=== PATIENT | male | born 1965 | race Caucasian/White ===

== ENCOUNTER 2016-08-17 00:06 | Emergency (ER) | payer BC, OTHER ==
[2016-08-17 00:12] VITALS: BP 101/75; PULSE 90; RESP 15; TEMP 97.7; O2SAT 94
[2016-08-17] MEDS ORDERED: HYDROCOD/APAP 5/325 PREPACK#6 BTL TAKEHOME ONE (00:30)
--- NOTE | 2016-08-17 00:30 | EDPHY ---
H & P Stated Complaint: possible shingles, pain in mid back and RUE, no skin issues Time Seen by Provider: 08/17/16 00:18 HPI/ROS: HPI The patient presents with 5 days of intermittent right-sided thoracic back pain which became constant tonight, it is sharp in nature and radiates throughout his mid back. It is worse with changes in position and when he lies directly on at. This feels identical to when he had varicella zoster in the same region 3 years ago. He has not noticed any rash yet. He woke tonight because the pain was severe. He denies any hematuria, nausea or vomiting, chest pain, shortness of breath, diaphoresis or dizziness.. REVIEW OF SYSTEMS Constitutional: No fever, no chills. Eyes: No discharge. ENT: No sore throat. Cardiovascular: No chest pain, no palpitations. Respiratory: No cough, no shortness of breath. Gastrointestinal: No abdominal pain, no vomiting. Genitourinary: No hematuria. Musculoskeletal: + back pain. Skin: No rashes. Neurological: No headache. PMHx: History of shingles, no diabetes or hypertension PHYSICAL General Appearance: Alert, no distress Eyes: Pupils equal and round no pallor or injection ENT, Mouth: Mucous membranes moist Respiratory: There are no retractions, lungs are clear to auscultation Cardiovascular: Regular rate and rhythm Gastrointestinal: Abdomen is soft and non-tender, no masses, bowel sounds normal Neurological: A&O, moves all extremities Skin: Warm and dry, no rashes Musculoskeletal: Neck is supple non tender Extremities: symmetrical, full range of motion Psychiatric: Patient is oriented X 3, there is no agitation Source: Patient Exam Limitations: No limitations - Personal History Current Tetanus/Diphtheria Vaccine: No Current Tetanus Diphtheria and Acellular Pertussis (TDAP): No - Medical/Surgical History Hx Asthma: No Hx Chronic Respiratory Disease: No Hx Diabetes: No Hx Cardiac Disease: No Hx Renal Disease: No Hx Cirrhosis: No Hx Alcoholism: No Hx HIV/AIDS: No Hx Splenectomy or Spleen Trauma: No Other PMH: shingles. no PSH - Social History Smoking Status: Never smoked Constitutional: Initial Vital Signs Temperature (C) 36.5 C 08/17/16 00:10 Heart Rate 90 08/17/16 00:10 Respiratory Rate 15 08/17/16 00:10 Blood Pressure 101/75 08/17/16 00:10 O2 Sat (%) 94 08/17/16 00:10 O2 Delivery Mode Room Air Allergies/Adverse Reactions: No Known Allergies Allergy (Unverified 08/20/13 01:22) Home Medications: Medication Instructions Recorded Acyclovir 800 mg PO 5XD #35 tab 08/17/16 predniSONE [Prednisone] 40 mg PO DAILY #16 tablet 08/17/16 Medical Decision Making Differential Diagnosis: This is a healthy 50-year-old male with history of varicella zoster on his right back 3 years ago who now presents with right-sided back pain which is sharp in nature with no associated features. On exam, he is well-appearing, I do not appreciate any rash. He does not have any CVA tenderness or real tenderness to his back. Differential diagnosis includes early varicella zoster without rash, musculoskeletal pain, doubt pyelonephritis given no fever, nausea or vomiting, flank pain. Doubt nephrolithiasis given no hematuria, vomiting, flank tenderness. AAA is unlikely as well. Will give him prescriptions for acyclovir and prednisone and he can wait to see if rash occurs. He should return if he is worse in any way. Departure - Departure Disposition: Home, Routine, Self-Care Clinical Impression: Back pain Qualifiers: Back pain location: thoracic back pain Chronicity: acute Back pain laterality: right Qualifier Code: (M54.6) Pain in thoracic spine Condition: Good Instructions: Shingles (ED) Additional Instructions: Please return to the emergency room if your worse in any way. Otherwise, you should follow up with your primary care doctor if the pain continues in 1-2 days. Prescriptions: Acyclovir 800 mg PO 5XD #35 tab predniSONE [Prednisone] 40 mg PO DAILY #16 tablet
== END 2016-08-17 00:43 | disposition home or self-care (01) ==
DX: M54.6 Pain in thoracic spine (principal)

== ENCOUNTER 2019-01-09 13:45 | Observation (INO) | payer BC | END 2019-01-10 15:11 | disposition home or self-care (01) | LOC: F1N 17:19 ==